=== PATIENT | female | born 1985 | race Caucasian/White ===

== ENCOUNTER 2017-08-17 17:26 | Inpatient (IN) | payer OTHER ==
[~2017-08-17] VITALS: Ht 27.9 cm; Wt 4.0 kg
[~2017-08-17 17:26] MED LIST: CARAFATE SU1 G/10 ML; CELEBREX100 MG PO
== END 2017-08-21 09:52 | disposition home or self-care (01) | DRG 603 ==
LOC: ER 17:26 → SEC-K 17:51 → MEDJ 08-18 15:25 → SURG 08-18 16:38
DX: L02.611 Cutaneous abscess of right foot (principal); L03.031 Cellulitis of right toe; E03.8 Other specified hypothyroidism; B95.62 Methicillin resistant Staphylococcus aureus infection as the cause of diseases classified elsewhere

== ENCOUNTER 2020-02-06 08:10 | Outpatient (CLI) | payer OTHER | END 2020-02-06 08:19 | disposition home or self-care (01) | LOC: SONOGRAMA 08:10 | PROVIDERS: ATTEND Pathology Anatomic Pathology & Clinical Pathology | DX: E04.1 Nontoxic single thyroid nodule (principal) ==

== ENCOUNTER → 2020-02-18 | Outpatient (CLI) | payer OTHER | END | disposition home or self-care (01) | LOC: OFIC 805 16:15 | PROVIDERS: ATTEND Otolaryngology | DX: E03.8 Other specified hypothyroidism (principal); R13.19 Other dysphagia; E04.1 Nontoxic single thyroid nodule ==

== ENCOUNTER 2023-09-23 12:57 | Emergency (ER) | payer OTHER ==
[~2023-09-23] VITALS: Ht 157.5 cm; Wt 63.5 kg
[2023-09-23] MEDS ORDERED: WELLBUTRIN SR150 MG PO (13:05)
[2023-09-23] MEDS ORDERED: LORazepam 2 MG/ML VIAL ONE (13:47)
[2023-09-23] MEDS ORDERED: 0.9 % SODIUM CHLORIDE 1,000 ML IV STA (13:55)
[2023-09-23] MEDS ORDERED: LORazepam 2 MG/ML VIAL IV ONE (14:00)
[2023-09-23 14:04] LABS: HEMATOCRIT 38.5 % (36.0-45.00); HEMOGLOBIN 12.4 g/dL (12.0-15.00); MEAN CELL VOLUME 83.6 fL (80.00-100.00); MEAN CORPUSCULAR HGB CONC 32.3 g/dl (32.0-36.0); PLATELET COUNT 375 K/uL (150-450); RED BLOOD COUNT 4.61 M/uL (4.00-6.00); RED CELL DISTRIBUTION WIDTH 14.1 % (11.5-14.5)
[2023-09-23 14:19] LABS: INR 0.94; PARTIAL THROMBOPLASTIN TIME 23.8 SECONDS (22.0-34.0); PROTHROMBIN TIME 9.9 SECONDS (9.0-11.5)
[2023-09-23 14:34] LABS: ALBUMIN 3.7 gm/dL (3.4-5.0); BILIRUBIN TOTAL 0.31 mg/dL (0.3-1.2); CALCIUM 8.6 mg/dL (8.5-10.1); CREATININE SERUM 0.93 mg/dL (0.55-1.02); GFR 67.84; GLOBULINA 3.9 G/DL (2.4-3.5); POTASSIUM 3.4 mEq/L (3.5-5.1); TOTAL PROTEIN 7.6 gm/dL (6.4-8.2); TSH 0.79 uIU/mL (0.358-3.74)
[2023-09-23 21:45] LABS: COCAINE NEGATIVE (NEGATIVE); METHADONE NEGATIVE (NEGATIVE); OPIATES NEGATIVE (NEGATIVE); THC ( Cannabinoids) NEGATIVE (NEGATIVE)
[2023-09-23] MEDS ORDERED: ONDANSETRON HCL 2 MG/ML VIAL ONE (23:36)
[2023-09-23] MEDS ORDERED: ONDANSETRON HCL 2 MG/ML VIAL IV ONE (23:45)
== END 2023-09-24 10:04 | disposition designated cancer center or children's hospital (05) ==
LOC: ER 12:57
PROVIDERS: General Practice
DX: T43.291A Poisoning by other antidepressants, accidental (unintentional), initial encounter (principal); R56.9 Unspecified convulsions; Y92.239 Unspecified place in hospital as the place of occurrence of the external cause; Z91.013 Allergy to seafood